=== PATIENT | male | born 1985 | race Caucasian/White ===

== ENCOUNTER 2019-05-30 14:08 | Emergency (ER) | payer SELFPAY ==
[~2019-05-30] VITALS: Ht 172.7 cm; Wt 89.0 kg
[~2019-05-30 14:08] MED LIST: HYDR-4011 PO; IBUP-1542 PO
[2019-05-30 14:24] VITALS: BP 126/65; PULSE 71; RESP 19; Ht 172.7 cm; Wt 89.0 kg
[2019-05-30] MEDS ORDERED: OXYCODONE/ACETAMINOPHEN (5/325) TAB PO ONE (16:00)
== END 2019-05-30 17:12 | disposition home or self-care (01) ==
LOC: FTE 14:08
DX: S20.211A Contusion of right front wall of thorax, initial encounter (principal); V03.10XA Pedestrian on foot injured in collision with car, pick-up truck or van in traffic accident, initial encounter
CPT/HCPCS: 71045; 71100; 81001